=== PATIENT | male | born 1995 | race African-American/Black ===

== ENCOUNTER 2020-09-11 14:52 | Emergency (ER) | payer SELFPAY ==
[~2020-09-11] VITALS: Ht 177.8 cm; Wt 93.0 kg
[2020-09-11 15:00] VITALS: BP 127/68
--- NOTE | 2020-09-11 15:16 | Emergency Room Report ---
History of Present Illness General Chief Complaint: Chest Pain Source: Patient Present Illness HPI Disclaimer: Please note that this report is being documented using DRAGON technology. This can lead to erroneous entry secondary to incorrect interpretation by the dictating instrument. HPI: 25-year-old otherwise healthy male with no reported medical history presents for evaluation of chest pain. Symptoms have been intermittent over the past 3 days. He notes a sometimes stabbing, sometimes cramping and sometimes throbbing pain over the left side of the chest that is nonradiating. No obvious triggers. Seems to be relieved by exercise. No exacerbating symptoms. Denies diaphoresis, palpitations, dizziness, lightheadedness, nausea, vomiting, diarrhea, headaches. Denies cough or shortness of breath. No recent Covid test but no known contact with sick individuals. No recent travel. Denies leg swelling or pain. No history of coagulopathy. No exogenous hormone use. Patient is also complaining that he strained his neck exercising about 3 weeks ago and reports persistent stiffness. Denies numbness, tingling or weakness in left upper extremity. Denies pain in the midline or trauma. PMH: Denies PSH: Denies Allergies: Denies Social Hx: Occasional THC, occasional alcohol, denies tobacco Allergies: Coded Allergies: No Known Allergies (Unverified , 09/11/20) COVID-19 Screening Contact w/high risk pt: No Experienced COVID-19 symptoms?: No COVID-19 Testing performed [facility]: No Nursing Documentation-PMH Past Medical History: No Stated History Review of Systems All Other Systems: negative except mentioned in HPI Physical Exam Vital Signs Date Time Temp Pulse Resp B/P (MAP) Pulse Ox O2 Delivery O2 Flow Rate FiO2 09/11/20 14:57 98.4 56 18 127/68 (87) 97 Room Air General: Awake and alert, no acute distress HEENT: NC/AT. EOMI. Cardiovascular: RRR. S1 and S2 normal. No murmur appreciated Resp: Normal work of breathing. No cough, wheezing or crackles appreciated Abdomen: Abdomen is soft, nondistended. Nontender Skin: Intact. No abrasions, laceration or rash over the exposed skin MSK: Normal tone and bulk. Moving all extremities. No obvious deformity. Tenderness over the paraspinal muscles in the cervical region on the left side extending over the left trapezius. No limitation range of motion left upper extremity. Neuro: Awake and alert. Mentating appropriately. Medical Decision Making Diagnostic Impression: Primary Impression: Muscle spasm of back Additional Impression: Nonspecific chest pain ER Course Is a 25-year-old male presenting for evaluation of chest pain over the past 3 days as well as neck strain. Differential includes not limited to ACS, esophageal spasm, chest wall spasm, GERD, bronchitis, pneumonia, pneumothorax among others. He is well-appearing arrives with stable vital signs. EKG is nonischemic. He is PERC negative. No infiltrates or abnormalities appreciated on chest x-ray. Labs including troponin have returned within normal limits. Patient is low risk for major adverse cardiac event according to heart score. He is stable for outpatient follow-up. We will treat his cervical strain with NSAIDs, Robaxin, lidocaine patches. He will be discharged to follow-up with PMD. Instructed to return with new or worsening symptoms. He understands and agrees with this treatment plan. Heart score: History: 0 EC Age: 0 Risk factors: 0 Initial troponin: 0 Total: 0 Laboratory Tests Test 09/11/20 15:15 White Blood Count 4.4 K/UL (4.8-10.8) L Red Blood Count 4.60 M/UL (4.70-6.10) L Hemoglobin 13.6 G/DL (14.2-18.0) L Hematocrit 40.4 % (42.0-52.0) L Mean Corpuscular Volume 88 FL (80-99) Mean Corpuscular Hemoglobin 29.5 PG (27.0-31.0) Mean Corpuscular Hemoglobin Concent 33.6 G/DL (32.0-36.0) Red Cell Distribution Width 13.1 % (11.6-14.8) Platelet Count 152 K/UL (150-450) Mean Platelet Volume 11.5 FL (6.5-10.1) H Neutrophils (%) (Auto) 38.6 % (45.0-75.0) L Lymphocytes (%) (Auto) 44.1 % (20.0-45.0) Monocytes (%) (Auto) 8.4 % (1.0-10.0) Eosinophils (%) (Auto) 6.1 % (0.0-3.0) H Basophils (%) (Auto) 2.9 % (0.0-2.0) H Sodium Level 140 MMOL/L (136-145) Potassium Level 4.1 MMOL/L (3.5-5.1) Chloride Level 105 MMOL/L (98-107) Carbon Dioxide Level 30 MMOL/L (21-32) Anion Gap 5 mmol/L (5-15) Blood Urea Nitrogen 9 mg/dL (7-18) Creatinine 1.3 MG/DL (0.55-1.30) Estimated Glomerular Filtration Rate > 60 mL/min (>60) Glucose Level 84 MG/DL (74-106) Calcium Level 9.0 MG/DL (8.5-10.1) Total Bilirubin 0.8 MG/DL (0.2-1.0) Aspartate Amino Transferase (AST) 24 U/L (15-37) Alanine Aminotransferase (ALT) 40 U/L (12-78) Alkaline Phosphatase 51 U/L (46-116) Troponin I 0.000 ng/mL (0.000-0.056) Total Protein 7.4 G/DL (6.4-8.2) Albumin 3.9 G/DL (3.4-5.0) Globulin 3.5 g/dL Albumin/Globulin Ratio 1.1 (1.0-2.7) EKG Diagnostic Results Troponin ordered: Yes When was troponin ordered?: Sep 11, 2020 EKG Time: 15:06 Rate: bradycardiac Rhythm: NSR Other Impression Sinus bradycardia, normal axis, normal intervals, no ST segment changes. Rhythm Strip Diag. Results Rhythm Strip Time: 15:06 EP Interpretation: yes Rate: 57 Rhythm: NSR, no PVC's, no ectopy Chest X-Ray Diagnostic Results Chest X-Ray Diagnostic Results : Chest X-Ray Ordered: Yes # of Views/Limited/Complete: 1 View Indication: Chest Pain EP Interpretation: Yes Interpretation: no consolidation, no effusion, no pneumothorax, no acute cardiopulmonary disease Impression: No acute disease Electronically Signed by: Electronically signed by Dr. Salas Gonzalez MD Last Vital Signs Date Time Temp Pulse Resp B/P (MAP) Pulse Ox O2 Delivery O2 Flow Rate FiO2 09/11/20 14:57 98.4 56 18 127/68 (87) 97 Room Air Disposition: HOME, SELF-CARE Condition: Stable Scripts Ibuprofen* (MOTRIN*) 600 Mg Tablet 600 MG ORAL Q6H PRN for For Pain, #30 TAB 0 Refills Prov: Salas Gonzalez MD 09/11/20 Methocarbamol* (ROBAXIN-750*) 750 Mg Tablet 750 MG PO QID, #28 TAB 0 Refills Prov: Salas Gonzalez MD 09/11/20 Lidocaine Patch* (Lidoderm Patch*) 1 Each Adh..patch 1 PATCH TOPIC DAILY, #14 PATCH 0 Refills Patch(es) may remain in place for up to 12 hours in any 24-hour period. Prov: Salas Gonzalez MD 09/11/20 Salas Gonzalez MD Sep 11, 2020 15:16
[2020-09-11 16:02] LABS: BASOPHILS % (AUTO) 2.9 % (0.0-2.0); EOSINOPHILS % (AUTO) 6.1 % (0.0-3.0); HEMATOCRIT 40.4 % (42.0-52.0); HEMOGLOBIN 13.6 G/DL (14.2-18.0); LYMPHOCYTES % (AUTO) 44.1 % (20.0-45.0); MEAN CORPUSCULAR VOLUME 88 FL (80-99); MONOCYTES % (AUTO) 8.4 % (1.0-10.0); NEUTROPHILS % (AUTO) 38.6 % (45.0-75.0); PLATELET COUNT 152 K/UL (150-450); RED CELL DISTRIBUTION WIDTH 13.1 % (11.6-14.8); WHITE BLOOD COUNT 4.4 K/UL (4.8-10.8)
[2020-09-11 16:30] LABS: ANION GAP 5 mmol/L (5-15); BLOOD UREA NITROGEN 9 mg/dL (7-18); CARBON DIOXIDE 30 MMOL/L (21-32); CHLORIDE 105 MMOL/L (98-107); CREATININE 1.3 MG/DL (0.55-1.30); POTASSIUM 4.1 MMOL/L (3.5-5.1); SODIUM 140 MMOL/L (136-145)
--- NOTE | 2020-09-11 16:31 | Diagnostic Imaging Report ---
Indication: Chest pain Technique: One view of the chest Comparison: none Findings: Lungs and pleural spaces are clear. Heart size is normal. Impression: No acute process
[2020-09-11 16:35] LABS: ALANINE AMINOTRANSFERASE 40 U/L (12-78); ALBUMIN 3.9 G/DL (3.4-5.0); ALBUMIN/GLOBULIN RATIO 1.1 (1.0-2.7); ALKALINE PHOSPHATASE 51 U/L (46-116); ASPARTATE AMINO TRANSFERASE 24 U/L (15-37); BILIRUBIN,TOTAL 0.8 MG/DL (0.2-1.0)
[2020-09-11] MEDS ORDERED: LIDODERM700 M1 TOPIC (16:42)
[2020-09-11] MEDS ORDERED: IBUPROFEN600 M1 ORAL (16:42)
[2020-09-11] MEDS ORDERED: ROBAXIN-750750 MG PO (16:42)
[2020-09-11 17:10] VITALS: BP 125/70
--- NOTE | 2020-09-11 17:10 | NUR ---
ER DISCHARGE NOTE: Patient is cleared to be discharged per ERMD, pt is aox4, on room air, with stable vital signs. pt was given dc and prescription instructions, pt was able to verbalize understanding, pt id band and iv site removed without complications. pt is able to ambulate with steady gait. pt took all belongings.
== END 2020-09-11 17:10 | disposition home or self-care (01) ==
LOC: EMR 15:15
DX: M62.830 Muscle spasm of back (principal); R07.9 Chest pain, unspecified
CPT/HCPCS: 36415; 71045; 80053; 84484; 85025; 93005; 99283